=== PATIENT | female | born 1955 | race Caucasian/White ===

== ENCOUNTER → 2017-01-01 | Outpatient (CLI) | payer OTHER ==
[~2017-01-01] MED LIST: ANTIBIOTIC O500 U/GM TP; ASPIR LOW81 MG PO; ATORVASTATIN CA40 M1 PO; BENADRYL50 MG PO; CALAN SR120 MG PO; CARAFATE1 G1 PO; CEFADROXIL500 M1 PO; CHEWABLE VITE1 CTB PO; DEPAKOTE500 M1 PO; DETROL LA4 MG PO; DIOVAN160 M2 PO; EPI EZ PEN1 MG/ML IM; FISH OIL500 M1 PO; GLUCOPHAGE500 M1 PO; HYDR12.5C PO; JANUMET 1000 MG1 TA1 PO; KLOR-CON M2020 ME1 PO; LANTUS100 U/ML SC; LISINOPRIL2.5 MG PO; LORAZEPAM1 MG PO; LOSARTAN POTASS1 TA6 PO; MAGNESIUM OXID400 MG PO; METFORMIN500 MG PO; NAPROSYN500 MG PO; PANTOPRAZOLE SO40 MG PO; PLAVIX75 M1 PO; PLAVIX75 MG PO; PREDNISONE10 MG PO; PROTONIX20 MG PO; TEMAZEPAM15 M1 PO; TENORMIN0.5 MG/ML PO; TENORMIN25 M1 PO; TYLENOL325 M1 PO; VITAMIN E1000 UNI3 PO
== END | disposition home or self-care (01) ==
LOC: MAMMO 00:51
DX: Z12.31 Encounter for screening mammogram for malignant neoplasm of breast (principal)

== ENCOUNTER 2017-11-07 13:42 | Inpatient (IN) | payer OTHER ==
[~2017-11-07] VITALS: Ht 160 cm; Wt 63.7 kg
[2017-11-07] VITALS (7 sets, daily range): BP systolic 132–165; BP diastolic 70–101
--- NOTE | ~2017-11-07 | CON ---
[place], [place] REPORT OF CONSULTATION NAME: JILLIAN VALENZUELA [facility] #: [id number] UNIT #: [id number] ROOM: 502 DOCTOR: SALMA BELLE MD BIRTHDATE: [birth year] DOS: 11/08/2017 CARDIOLOGY CONSULTATION REASON FOR CONSULTATION: Chest discomfort. HISTORY OF PRESENT ILLNESS: The patient was seen today 11/08/2017, for evaluation of chest discomfort. She is a 62-year-old woman, who does have multiple risk factors for coronary artery disease including type 2 diabetes mellitus, hyperlipidemia, hypertension and a previous stroke. She was treated with a right carotid stent at [facility] in the mid . She has no residual. She has never had a heart attack. She was in her normal state of health until about 2 days ago when she began to have heaviness in her chest. She did associate this with some cough and sputum production. She denied that the pain was pleuritic and states that the pain was fairly constant for over 2 days. It did not improve or get worse with exercise, food, position, etc. She did feel very tired with the pain. She did come to the Emergency Room where she was given aspirin. She still does not feel her normal self. Since she has been in the hospital, her electrocardiogram has not shown any acute ST changes and troponin levels have been normal. PAST MEDICAL HISTORY: Includes, 1. History of stroke in the mid . The patient did have a stent to her right carotid at [facility] at that time. 2. Type 2 diabetes mellitus. 3. Essential hypertension. 4. History of pericarditis. 5. History of urinary tract infections. 6. Status post cholecystectomy and hysterectomy. MEDICATIONS: Prior to admission included aspirin 81 mg per day, atorvastatin 40 mg per day, clopidogrel 75 mg per day, divalproex 500 mg per day, lorazepam 1 mg t.i.d. p.r.n., metformin 500 mg b.i.d. before meals, pantoprazole 40 mg daily, sucralfate 1 gram p.o. b.i.d., valsartan 160 mg daily, and verapamil 120 mg daily. ALLERGIES: She lists allergies to PENICILLIN, SULFA, CODEINE, IODINE, LATEX, MOXIFLOXACIN AND NITROGLYCERIN. FAMILY HISTORY: Negative for early coronary artery disease. Her father did have a pacemaker in his 60s or 70s. Her mother was felt to need a pacemaker in her later years, but never had it installed. REVIEW OF SYSTEMS: The patient denies diplopia, loss of vision. She denies lightheadedness or syncope. She denies orthopnea or PND. She has had a very poor appetite the last several days and states that she has lost 10 pounds in the last week or so. She has had some nausea. She denies vomiting. She has had diarrhea, but denies blood in her stools. She was noted to be hypokalemic on admission, she denied any focal weakness. She denied fevers, chills or sweats. She denies hemoptysis or hematemesis. She does not have any blood in [place], [place] REPORT OF CONSULTATION NAME: JILLIAN VALENZUELA UNIT #: [id number] ROOM: [facility] DOCTOR: SALMA BELLE MD BIRTHDATE: [birth year] her urine. She denies any peripheral edema or leg cramping. She denies any history of DVT. She does have degenerative joint disease with pains in her right knee. She denies heat or cold intolerance and denies polyuria or polydipsia. Remainder of the review of systems is negative except as noted above. SOCIAL HISTORY: The patient is a retired nurse's aide from . She was a smoker, but quit many years ago. PHYSICAL EXAMINATION: GENERAL: The patient is a well-nourished woman, who is awake, alert and oriented. VITAL SIGNS: Pulse is 84 and regular, blood pressure is 150/85. She is afebrile. She weighs 63.7 kg and has a body mass index of 24.9. HEENT: Normocephalic, atraumatic. Extraocular muscles are intact. Sclerae are clear. Pupils equal, round and react to light. The oral mucosa is moist. Tongue is midline. NECK: Supple. She has no jugular distention. Carotids are full without bruits. She has no neck or supraclavicular masses, no thyromegaly. LUNGS: Respirations are unlabored. Her chest is clear to auscultation and percussion. She has no presacral edema or chest wall tenderness. CARDIOVASCULAR: Has a regular rhythm. She has a soft S4 gallop, but no S3 or murmur. The PMI is not displaced. There is no precordial heave, lift or thrill. ABDOMEN: Soft and normally active without masses, organomegaly or bruits. EXTREMITIES: Showed no clubbing, cyanosis or edema. There were no palpable cords or Homans sign. Pedal pulses were easily palpated bilaterally. LABORATORY DATA: I reviewed her electrocardiogram. It showed sinus rhythm and was a normal tracing. Hemoglobin is 12.5, hematocrit 38.7. There are 6700 white cells and 279,000 platelets present. Sodium is 135, potassium 3.8, but it was 3.9 on admission. Chloride was 102, CO2 of 23, BUN 4, creatinine 0.73. Troponin levels were negative x 3. Total cholesterol is 118, LDL is 29, HDL is 76, triglycerides 65. TSH was elevated at 9.68. IMPRESSIONS: 1. Atypical chest discomfort. Despite the fact that she has had discomfort for 48 hours, she has no EKG changes or elevation in cardiac troponin. 2. Type 2 diabetes mellitus. 3. Hypertension. 4. Elevated TSH, suggesting hypothyroidism. 5. Remote history of cigarette abuse. 6. Diarrhea with 10-pound weight loss over the last few weeks. PLAN: The patient's symptoms are very suggestive of a GI source. Nonetheless, she does have significant risk factors of hypertension and diabetes. Her lipid levels are ideal. We will evaluate her cardiac status further with a pharmacologic stress test. Further recommendations will depend upon the results [place], [place] REPORT OF CONSULTATION NAME: JILLIAN VALENZUELA UNIT #: [id number] ROOM: [facility] DOCTOR: SALMA BELLE MD BIRTHDATE: [birth year] of the stress test. We thank the hospitalist physicians for asking our advice regarding her care. SALMA BELLE MD CM:CONSTR:REPORT OF CONSULTATION 1028 11/08/17 5229 interface
[2017-11-07 14:00] LABS: BASO % 0.5 % (0.0-1.0); EOS # 0.1 10*3/uL (0.0-0.4); EOS % 0.6 % (1.0-4.0); HEMATOCRIT 40.8 % (37.0-47.0); HEMOGLOBIN 13.1 g/dl (12.0-16.0); LYMPH # 1.8 10*3/uL (1.3-4.4); LYMPH % 22.1 % (27.0-41.0); MEAN CELL VOLUME 76.8 fl (81.0-99.0); MEAN CORPUSCULAR HGB 24.7 pg (27.0-31.0); MEAN CORPUSCULAR HGB CONC 32.1 g/dl (33.0-37.0); MEAN PLATELET VOLUME 9.6 fl (9.6-12.3); MONO # 0.8 10*3/uL (0.1-1.0); MONO % 10.4 % (3.0-9.0); NEUT # 5.3 10*3/uL (2.3-7.9); NEUT % 65.5 % (47.0-73.0); PLATELET COUNT AUTOMATED 269 10*3/uL (130-400); RED BLOOD COUNT 5.31 10*6/uL (4.10-5.10); RED CELL DISTRI WIDTH 14.5 % (0-14.5); WHITE BLOOD COUNT 8.1 10*3/uL (4.8-10.8)
[2017-11-07 14:12] LABS: ACT PARTIAL THROMBO TIME 25.3 SECONDS (20.8-31.5); INTERNATIONAL NORM RATIO 1.1 (2.0-3.5)
[2017-11-07 14:17] LABS: ALBUMIN 3.8 gm/dl (3.1-4.5); ALKALINE PHOSPHATASE 87 U/L (45-117); BUN 3 mg/dl (7-24); CHLORIDE 99 mmol/L (98-107); CREATININE 0.83 mg/dL (0.55-1.02); POTASSIUM 3.9 mmol/L (3.5-5.1); SGOT/AST 71 IU/L (3-35); SGPT/ALT 87 U/L (12-78); SODIUM 135 mmol/L (136-145); TOTAL PROTEIN 8.1 gm/dL (6.4-8.2)
[2017-11-07 14:19] LABS: TROPONIN I < 0.015 ng/ml (<0.045)
[2017-11-08] VITALS (7 sets, daily range): BP systolic 124–166; BP diastolic 68–94
[2017-11-08 06:43] LABS: BASO % 0.6 % (0.0-1.0); EOS # 0.1 10*3/uL (0.0-0.4); HEMATOCRIT 38.7 % (37.0-47.0); HEMOGLOBIN 12.5 g/dl (12.0-16.0); LYMPH # 1.7 10*3/uL (1.3-4.4); LYMPH % 25.3 % (27.0-41.0); MEAN CELL VOLUME 76.2 fl (81.0-99.0); MEAN CORPUSCULAR HGB 24.6 pg (27.0-31.0); MEAN CORPUSCULAR HGB CONC 32.3 g/dl (33.0-37.0); MEAN PLATELET VOLUME 10.4 fl (9.6-12.3); MONO # 0.7 10*3/uL (0.1-1.0); NEUT # 4.1 10*3/uL (2.3-7.9); NEUT % 61.7 % (47.0-73.0); NUCLEATED RED BLOOD CELL 0.3 % (0.0-0.0); PLATELET COUNT AUTOMATED 279 10*3/uL (130-400); RED BLOOD COUNT 5.08 10*6/uL (4.10-5.10); RED CELL DISTRI WIDTH 14.2 % (0-14.5); WHITE BLOOD COUNT 6.7 10*3/uL (4.8-10.8)
[2017-11-08 06:59] LABS: CHLORIDE 102 mmol/L (98-107); POTASSIUM 3.8 mmol/L (3.5-5.1); SODIUM 135 mmol/L (136-145)
[2017-11-08 07:17] LABS: ALBUMIN 3.6 gm/dl (3.1-4.5); ALKALINE PHOSPHATASE 80 U/L (45-117); BUN 4 mg/dl (7-24); CHOLESTEROL 118 mg/dL (<200); CREATININE 0.73 mg/dL (0.55-1.02); FREE T4 0.99 ng/dl (0.76-1.46); HDL CHOLESTEROL 76 mg/dl (40-60); LDL CHOLESTEROL 29 mg/dL (9-159); PHOSPHOROUS 2.9 mg/dL (2.5-4.9); SGOT/AST 60 IU/L (3-35); SGPT/ALT 78 U/L (12-78); TOTAL PROTEIN 7.9 gm/dL (6.4-8.2); TRIGLYCERIDES 65 mg/dl (<150); VLDL CHOLESTEROL 13 mg/dL (6-40)
[2017-11-08 08:00] LABS: VITAMIN D, 25-HYDROXY 20.5 ng/mL (30-100)
[2017-11-09] VITALS (7 sets, daily range): BP systolic 112–182; BP diastolic 69–94
[2017-11-10] VITALS: BP 192/92
[2017-11-10 02:50] VITALS: BP 122/62
[2017-11-10 08:00] VITALS: BP 154/82
[2017-11-10] MEDS ORDERED: HYDR12.5C PO (10:08)
== END 2017-11-10 11:20 | disposition home or self-care (01) | DRG 305 ==
LOC: ED 13:42 → 5E 15:55 → EDHOLD 15:55 → 5E 16:09
PROVIDERS: Emergency Medicine; Internal Medicine
PROC: 4A02XM4 Measurement of Cardiac Total Activity, External Approach (ICD-10-PCS; principal; 2017-11-08)
PROC: 3E073KZ Introduction of Other Diagnostic Substance into Coronary Artery, Percutaneous Approach (ICD-10-PCS; principal; 2017-11-08)
DX: I16.0 Hypertensive urgency (principal); E11.52 Type 2 diabetes mellitus with diabetic peripheral angiopathy with gangrene; E87.1 Hypo-osmolality and hyponatremia; I10 Essential (primary) hypertension; E78.2 Mixed hyperlipidemia; R74.0 Nonspecific elevation of levels of transaminase and lactic acid dehydrogenase [LDH]; I34.0 Nonrheumatic mitral (valve) insufficiency; R19.7 Diarrhea, unspecified; E83.42 Hypomagnesemia; I70.90 Unspecified atherosclerosis; Z87.440 Personal history of urinary (tract) infections; Z90.49 Acquired absence of other specified parts of digestive tract; Z90.710 Acquired absence of both cervix and uterus; Z83.3 Family history of diabetes mellitus; Z82.49 Family history of ischemic heart disease and other diseases of the circulatory system; Z84.89 Family history of other specified conditions; Z82.0 Family history of epilepsy and other diseases of the nervous system; Z88.0 Allergy status to penicillin; Z88.2 Allergy status to sulfonamides; Z88.5 Allergy status to narcotic agent; Z88.8 Allergy status to other drugs, medicaments and biological substances; Z91.040 Latex allergy status; Z86.73 Personal history of transient ischemic attack (TIA), and cerebral infarction without residual deficits; Z79.82 Long term (current) use of aspirin; Z79.84 Long term (current) use of oral hypoglycemic drugs; Z79.899 Other long term (current) drug therapy; Z87.891 Personal history of nicotine dependence

== ENCOUNTER → 2017-11-14 | Outpatient (CLI) | payer OTHER ==
[2017-11-14 13:32] LABS: BUN 5 mg/dl (7-24); CHLORIDE 98 mmol/L (98-107); CREATININE 0.74 mg/dL (0.55-1.02); POTASSIUM 3.9 mmol/L (3.5-5.1); SODIUM 135 mmol/L (136-145)
== END | disposition home or self-care (01) ==
LOC: LAB 11:51
PROVIDERS: Internal Medicine
DX: I10 Essential (primary) hypertension (principal)

== ENCOUNTER 2018-06-13 14:09 | Inpatient (IN) | payer OTHER ==
[~2018-06-13] VITALS: Ht 160 cm; Wt 61.0 kg
--- NOTE | ~2018-06-13 | EKG ---
[place], [place] ELECTROCARDIOGRAM REPORT NAME: JILLIAN VALENZUELA UNIT #: [id number] ROOM: 407 DOCTOR: ROM DRAFT REPORT BIRTHDATE: [birth year] [facility] Test Date: 2018-06-13 Test Time: 18:02:23 Pat Name: JILLIAN VALENZUELA Department: Room: 407 Gender: F Commissions Specialist: Karie Quiros : 1955 Requested By: KOREY VILLEDA Order Number: [id number] Reading MD: Mak Hedrick MD Measurements Intervals [place] Rate: 95 P: 45 NM: 128 QRS: -36 QRSD: 90 T: 14 QT: 392 QTc: 493 Interpretive Statements Sinus rhythm Abnormal R-wave progression, late transition Inferior infarct, old No change from earlier ECG this date Electronically Signed On 06-13-2018 19:49:54 PST by Mak Hedrick MD CM:EKGRPT:ELECTROCARDIOGRAM REPORT 01 48 KOREY CEDILLO DRAFT REPORT KOREY VILLEDA DO
--- NOTE | ~2018-06-13 | EKG ---
[place], [place] ELECTROCARDIOGRAM REPORT NAME: JILLIAN VALENZUELA UNIT #: [id number] ROOM: 407 DOCTOR: ROM DRAFT REPORT BIRTHDATE: [birth year] [facility] Test Date: 2018-06-13 Test Time: 20:50:17 Pat Name: JILLIAN VALENZUELA Department: Room: 407 Gender: F Reservations Sales Supervisor: 50 : 1955 Requested By: KOREY VILLEDA Order Number: [id number] Reading MD: Mak Hedrick MD Measurements Intervals [place] Rate: 78 P: 60 NE: 137 QRS: -39 QRSD: 94 T: 46 QT: 421 QTc: 480 Interpretive Statements Sinus rhythm Probable left atrial enlargement Abnormal R-wave progression, early transition Inferior infarct, old No change from earlier ECG this date Electronically Signed On 06-14-2018 10:31:04 PST by Mak Hedrick MD CM:EKGRPT:ELECTROCARDIOGRAM REPORT [id number] KOREY CEDILLO DRAFT REPORT KOREY VILLEDA DO
--- NOTE | ~2018-06-13 | EKG ---
[place], [place] ELECTROCARDIOGRAM REPORT NAME: JILLIAN VALENZUELA UNIT #: [id number] ROOM: 407 DOCTOR: ROM DRAFT REPORT BIRTHDATE: [birth year] [facility] Test Date: 2018-06-13 Test Time: 14:44:36 Pat Name: JILLIAN VALENZUELA Department: Room: 407 Gender: F Aerophysics Engineer: Karie Quiros : 1955 Requested By: SUSI NAJERA Order Number: [id number] Reading MD: Mak Hedrick MD Measurements Intervals [place] Rate: 108 P: 49 [place]: 132 QRS: -42 QRSD: 84 T: 24 QT: 373 QTc: 500 Interpretive Statements Sinus tachycardia Probable left atrial enlargement Inferior infarct, old Poor precordial R-wave progression No previous ECG available for comparison Electronically Signed On 06-13-2018 19:43:32 PST by Mak Hedrick MD CM:EKGRPT:ELECTROCARDIOGRAM REPORT [id number] 42 SUSI CUETO DRAFT REPORT SUSI PATEL
[2018-06-13 14:12] VITALS: BP 117/73
[2018-06-13 15:11] LABS: BASO % 0.5 % (0.0-1.0); EOS # 0.4 10*3/uL (0.0-0.4); EOS % 5.6 % (1.0-4.0); HEMATOCRIT 36.1 % (37.0-47.0); HEMOGLOBIN 11.6 g/dl (12.0-16.0); LYMPH # 1.7 10*3/uL (1.3-4.4); LYMPH % 27.1 % (27.0-41.0); MEAN CORPUSCULAR HGB 24.7 pg (27.0-31.0); MEAN CORPUSCULAR HGB CONC 32.1 g/dl (33.0-37.0); MEAN PLATELET VOLUME 10.1 fl (9.6-12.3); MONO # 0.4 10*3/uL (0.1-1.0); MONO % 6.9 % (3.0-9.0); NEUT # 3.7 10*3/uL (2.3-7.9); NEUT % 59.6 % (47.0-73.0); PLATELET COUNT AUTOMATED 370 10*3/uL (130-400); RED BLOOD COUNT 4.69 10*6/uL (4.10-5.10); RED CELL DISTRI WIDTH 14.4 % (0-14.5); WHITE BLOOD COUNT 6.2 10*3/uL (4.8-10.8)
[2018-06-13 15:22] LABS: ACT PARTIAL THROMBO TIME 25.3 SECONDS (20.8-31.5); INTERNATIONAL NORM RATIO 1.1 (2.0-3.5)
[2018-06-13 15:28] LABS: ALBUMIN 3.3 gm/dl (3.1-4.5); ALKALINE PHOSPHATASE 66 U/L (45-117); BUN 7 mg/dl (7-24); CHLORIDE 100 mmol/L (98-107); LIPASE 155 U/L (73-393); POTASSIUM 3.1 mmol/L (3.5-5.1); SGOT/AST 35 IU/L (3-35); SGPT/ALT 27 U/L (12-78); SODIUM 135 mmol/L (136-145); TOTAL PROTEIN 7.8 gm/dL (6.4-8.2)
[2018-06-13 16:00] VITALS: BP 132/84
[2018-06-13 17:00] VITALS: BP 128/74
[2018-06-13 17:21] LABS: BILIRUBIN NEGATIVE (NEGATIVE); BLOOD NEGATIVE (NEGATIVE); CLARITY SL CLOUDY (CLEAR); COLOR YELLOW (YELLOW); GLUCOSE NEGATIVE (NEGATIVE); KETONE NEGATIVE (NEGATIVE); LEUKO ESTERASE 1+ (NEGATIVE); NITRITE NEGATIVE (NEGATIVE); PH 7.5 (5.0-9.0); SPECIFIC GRAVITY <= 1.005 (1.005-1.030); UROBILINOGEN 0.2 E.U./dl (0.2-1.0)
[2018-06-13 17:28] LABS: BACTERIA 1+; WBC 41-50 wbc/hpf (0-5)
[2018-06-13 18:40] VITALS: BP 149/72
[2018-06-13] MEDS ORDERED: COZAAR50 M1 PO (18:50)
[2018-06-13] MEDS ORDERED: ZOLOFT50 MG PO (18:52)
[2018-06-13] MEDS ORDERED: TRAZODONE50 MG PO (18:53)
[2018-06-13] MEDS ORDERED: DEXAMETHASONE/NE5 M1 OPH (18:54)
[2018-06-13 20:00] VITALS: BP 139/63
[2018-06-14] VITALS: BP 155/83
[2018-06-14 06:25] LABS: BASO % 0.5 % (0.0-1.0); EOS # 0.5 10*3/uL (0.0-0.4); EOS % 8.2 % (1.0-4.0); HEMATOCRIT 33.2 % (37.0-47.0); HEMOGLOBIN 10.7 g/dl (12.0-16.0); LYMPH # 1.3 10*3/uL (1.3-4.4); LYMPH % 23.3 % (27.0-41.0); MEAN CELL VOLUME 76.9 fl (81.0-99.0); MEAN CORPUSCULAR HGB 24.8 pg (27.0-31.0); MEAN CORPUSCULAR HGB CONC 32.2 g/dl (33.0-37.0); MEAN PLATELET VOLUME 10.4 fl (9.6-12.3); MONO # 0.5 10*3/uL (0.1-1.0); MONO % 8.1 % (3.0-9.0); NEUT # 3.3 10*3/uL (2.3-7.9); NEUT % 59.5 % (47.0-73.0); PLATELET COUNT AUTOMATED 328 10*3/uL (130-400); RED BLOOD COUNT 4.32 10*6/uL (4.10-5.10); RED CELL DISTRI WIDTH 14.1 % (0-14.5); WHITE BLOOD COUNT 5.6 10*3/uL (4.8-10.8)
[2018-06-14 06:35] LABS: ALKALINE PHOSPHATASE 60 U/L (45-117); BUN 4 mg/dl (7-24); CHLORIDE 104 mmol/L (98-107); CHOLESTEROL 103 mg/dL (<200); CREATININE 0.65 mg/dL (0.55-1.02); HDL CHOLESTEROL 37 mg/dl (40-60); IRON 56 ug/dL (50-170); LDL CHOLESTEROL 54 mg/dL (9-159); POTASSIUM 3.6 mmol/L (3.5-5.1); SGOT/AST 32 IU/L (3-35); SGPT/ALT 28 U/L (12-78); SODIUM 136 mmol/L (136-145); TOTAL IRON BINDING CAPACITY 258 ug/dl (250-450); TOTAL PROTEIN 6.7 gm/dL (6.4-8.2); TRIGLYCERIDES 59 mg/dl (<150); VLDL CHOLESTEROL 12 mg/dL (6-40)
[2018-06-14 06:36] LABS: TROPONIN I 0.023 ng/ml (<0.045)
[2018-06-14 06:41] LABS: FREE T4 0.92 ng/dl (0.76-1.46)
[2018-06-14 06:50] LABS: PHOSPHOROUS 0.5 mg/dL (2.5-4.9)
[2018-06-14 07:08] LABS: ACT PARTIAL THROMBO TIME 25.5 SECONDS (20.8-31.5); INTERNATIONAL NORM RATIO 1.1 (2.0-3.5)
[2018-06-14 07:57] LABS: VITAMIN D, 25-HYDROXY 33.8 ng/mL (30-100)
[2018-06-14 08:00] VITALS: BP 148/76
[2018-06-14 12:00] VITALS: BP 131/70
[2018-06-14 16:00] VITALS: BP 136/65
[2018-06-14 20:00] VITALS: BP 147/85
[2018-06-15] VITALS: BP 148/71
[2018-06-15 06:19] LABS: BASO # 0.1 10*3/uL (0.0-0.1); BASO % 0.8 % (0.0-1.0); EOS # 0.5 10*3/uL (0.0-0.4); EOS % 7.9 % (1.0-4.0); HEMOGLOBIN 10.4 g/dl (12.0-16.0); LYMPH # 1.9 10*3/uL (1.3-4.4); LYMPH % 31.3 % (27.0-41.0); MEAN CELL VOLUME 77.6 fl (81.0-99.0); MEAN CORPUSCULAR HGB 24.5 pg (27.0-31.0); MEAN CORPUSCULAR HGB CONC 31.5 g/dl (33.0-37.0); MEAN PLATELET VOLUME 10.8 fl (9.6-12.3); MONO # 0.6 10*3/uL (0.1-1.0); MONO % 10.4 % (3.0-9.0); NEUT % 49.3 % (47.0-73.0); PLATELET COUNT AUTOMATED 304 10*3/uL (130-400); RED BLOOD COUNT 4.25 10*6/uL (4.10-5.10); RED CELL DISTRI WIDTH 14.4 % (0-14.5)
[2018-06-15 06:54] LABS: ALBUMIN 2.9 gm/dl (3.1-4.5); ALKALINE PHOSPHATASE 64 U/L (45-117); BUN 2 mg/dl (7-24); CHLORIDE 108 mmol/L (98-107); CREATININE 0.62 mg/dL (0.55-1.02); PHOSPHOROUS 2.4 mg/dL (2.5-4.9); POTASSIUM 3.5 mmol/L (3.5-5.1); SGOT/AST 35 IU/L (3-35); SGPT/ALT 29 U/L (12-78); SODIUM 139 mmol/L (136-145); TOTAL PROTEIN 6.6 gm/dL (6.4-8.2)
[2018-06-15 08:00] VITALS: BP 146/72
[2018-06-15 12:00] VITALS: BP 130/59
[2018-06-15 16:00] VITALS: BP 150/71
[2018-06-15 20:00] VITALS: BP 144/76
[2018-06-16] VITALS: BP 157/77
[2018-06-16 06:26] LABS: BUN 1 mg/dl (7-24); CHLORIDE 110 mmol/L (98-107); CREATININE 0.67 mg/dL (0.55-1.02); PHOSPHOROUS 2.1 mg/dL (2.5-4.9); POTASSIUM 3.4 mmol/L (3.5-5.1); SODIUM 140 mmol/L (136-145)
[2018-06-16 06:43] LABS: BASO % 0.4 % (0.0-1.0); EOS # 0.4 10*3/uL (0.0-0.4); HEMATOCRIT 33.2 % (37.0-47.0); HEMOGLOBIN 10.6 g/dl (12.0-16.0); LYMPH # 1.2 10*3/uL (1.3-4.4); LYMPH % 21.9 % (27.0-41.0); MEAN CELL VOLUME 77.9 fl (81.0-99.0); MEAN CORPUSCULAR HGB 24.9 pg (27.0-31.0); MEAN CORPUSCULAR HGB CONC 31.9 g/dl (33.0-37.0); MEAN PLATELET VOLUME 10.7 fl (9.6-12.3); MONO # 0.5 10*3/uL (0.1-1.0); NEUT # 3.4 10*3/uL (2.3-7.9); NEUT % 61.3 % (47.0-73.0); PLATELET COUNT AUTOMATED 312 10*3/uL (130-400); RED BLOOD COUNT 4.26 10*6/uL (4.10-5.10); RED CELL DISTRI WIDTH 14.5 % (0-14.5); WHITE BLOOD COUNT 5.6 10*3/uL (4.8-10.8)
[2018-06-16 08:00] VITALS: BP 146/82
[2018-06-16 12:00] VITALS: BP 164/82
[2018-06-16 16:00] VITALS: BP 156/87
[2018-06-16 20:00] VITALS: BP 154/88; BP 168/90
[2018-06-17] VITALS: BP 154/70
[2018-06-17 08:00] VITALS: BP 150/80
[2018-06-17 12:00] VITALS: BP 125/62
[2018-06-17] MEDS ORDERED: DEPAKOTE250 MG PO (13:29)
[2018-06-17 16:00] VITALS: BP 154/69
[2018-06-17 20:00] VITALS: BP 176/90; BP 179/86
[2018-06-18] VITALS: BP 169/90; BP 182/98
[2018-06-18 02:15] VITALS: BP 132/66
[2018-06-18 04:00] VITALS: BP 138/72
[2018-06-18 08:00] VITALS: BP 168/98
[2018-06-18 09:48] VITALS: BP 122/68
[2018-06-18 12:00] VITALS: BP 125/71
== END 2018-06-18 14:13 | disposition home health service (06) | DRG 683 ==
LOC: ED 14:09 → 4E 17:50 → EDHOLD 17:50 → 4E 18:12
PROVIDERS: Internal Medicine; Physician Assistant; Student in an Organized Health Care Education/Training Program; ADMIT Emergency Medicine
DX: N17.9 Acute kidney failure, unspecified (principal); N30.00 Acute cystitis without hematuria; E87.1 Hypo-osmolality and hyponatremia; E87.2 Acidosis; R63.0 Anorexia; E86.0 Dehydration; D50.9 Iron deficiency anemia, unspecified; E87.6 Hypokalemia; E11.65 Type 2 diabetes mellitus with hyperglycemia; E83.42 Hypomagnesemia; E78.2 Mixed hyperlipidemia; I70.90 Unspecified atherosclerosis; J44.9 Chronic obstructive pulmonary disease, unspecified; K21.9 Gastro-esophageal reflux disease without esophagitis; F41.9 Anxiety disorder, unspecified; E83.39 Other disorders of phosphorus metabolism; I67.1 Cerebral aneurysm, nonruptured; I10 Essential (primary) hypertension; E53.8 Deficiency of other specified B group vitamins; Z88.0 Allergy status to penicillin; Z88.2 Allergy status to sulfonamides; Z88.1 Allergy status to other antibiotic agents; Z88.8 Allergy status to other drugs, medicaments and biological substances; Z91.040 Latex allergy status; Z90.710 Acquired absence of both cervix and uterus; Z90.49 Acquired absence of other specified parts of digestive tract; Z87.891 Personal history of nicotine dependence; Z82.0 Family history of epilepsy and other diseases of the nervous system; Z83.3 Family history of diabetes mellitus; Z82.49 Family history of ischemic heart disease and other diseases of the circulatory system; Z83.438 Family history of other disorder of lipoprotein metabolism and other lipidemia; Z86.73 Personal history of transient ischemic attack (TIA), and cerebral infarction without residual deficits; Z86.718 Personal history of other venous thrombosis and embolism; Z79.82 Long term (current) use of aspirin; Z79.899 Other long term (current) drug therapy; Z79.02 Long term (current) use of antithrombotics/antiplatelets; Z68.23 Body mass index [BMI] 23.0-23.9, adult

== ENCOUNTER → 2018-10-30 | Outpatient (CLI) | payer OTHER ==
[~2018-10-30] MED LIST changes: +COZAAR50 M1 PO; +DEPAKOTE250 MG PO; +DEXAMETHASONE/NE5 M1 OPH; +MYNEPHROCAPS SOF1 MG PO; +POTASSIUM CHLO10 MEQ PO; +TOPROL XL25 MG PO; +TRAZODONE50 MG PO; +VIIBRYD1 EAC1 PO; +ZOLOFT50 MG PO
--- NOTE | ~2018-10-30 | EKG ---
[place], [place] ELECTROCARDIOGRAM REPORT NAME: JILLIAN VALENZUELA UNIT #: [id number] ROOM: DOCTOR: ROM DRAFT REPORT BIRTHDATE: [birth year] [facility] Test Date: 2018-10-30 Test Time: 14:24:58 Pat Name: JILLIAN VALENZUELA Department: Room: Gender: F Director Nursing Service: : 1955 Requested By: MANDY ROY Order Number: [id number] Reading MD: Milad Guzman Measurements Intervals [place] Rate: 82 P: 61 PA: 145 QRS: -32 QRSD: 86 T: 1 QT: 373 QTc: 436 Interpretive Statements Sinus rhythm Probable left atrial enlargement Inferior infarct, old Anteroseptal infarct, old Compared to ECG 06/13/2018 20:50:17 No significant changes Electronically Signed On 10-31-2018 8:34:04 PDT by Milad Guzman CM:EKGRPT:ELECTROCARDIOGRAM REPORT [id number] MANDY CEDILLO DRAFT REPORT MANDY ROY DO
[2018-10-30 14:13] LABS: BASO % 0.5 % (0.0-1.0); EOS # 0.1 10*3/uL (0.0-0.4); EOS % 1.7 % (1.0-4.0); HEMOGLOBIN 11.7 g/dl (12.0-16.0); LYMPH # 2.1 10*3/uL (1.3-4.4); LYMPH % 27.5 % (27.0-41.0); MEAN CELL VOLUME 77.2 fl (81.0-99.0); MEAN CORPUSCULAR HGB 23.8 pg (27.0-31.0); MEAN CORPUSCULAR HGB CONC 30.8 g/dl (33.0-37.0); MEAN PLATELET VOLUME 10.6 fl (9.6-12.3); MONO # 0.8 10*3/uL (0.1-1.0); MONO % 11.2 % (3.0-9.0); NEUT # 4.4 10*3/uL (2.3-7.9); NEUT % 58.6 % (47.0-73.0); PLATELET COUNT AUTOMATED 261 10*3/uL (130-400); RED BLOOD COUNT 4.92 10*6/uL (4.10-5.10); RED CELL DISTRI WIDTH 15.3 % (0-14.5); WHITE BLOOD COUNT 7.5 10*3/uL (4.8-10.8)
[2018-10-30 14:24] LABS: ACT PARTIAL THROMBO TIME 26.3 SECONDS (20.0-32.1); INTERNATIONAL NORM RATIO 1.1 (2.0-3.5)
[2018-10-30 14:42] LABS: ALBUMIN 3.8 gm/dl (3.1-4.5); ALKALINE PHOSPHATASE 120 U/L (45-117); BUN 8 mg/dl (7-24); CHLORIDE 102 mmol/L (98-107); CREATININE 0.84 mg/dL (0.55-1.02); POTASSIUM 4.6 mmol/L (3.5-5.1); SGOT/AST 16 IU/L (3-35); SGPT/ALT 28 U/L (12-78); SODIUM 133 mmol/L (136-145); TOTAL PROTEIN 7.6 gm/dL (6.4-8.2)
== END | disposition home or self-care (01) ==
LOC: LAB 13:42
PROVIDERS: Orthopaedic Surgery
DX: E11.9 Type 2 diabetes mellitus without complications (principal); I10 Essential (primary) hypertension; M19.90 Unspecified osteoarthritis, unspecified site; N39.0 Urinary tract infection, site not specified; D68.8 Other specified coagulation defects; J98.11 Atelectasis

== ENCOUNTER → 2018-11-03 | Outpatient (CLI) | payer OTHER ==
[2018-11-03 12:08] LABS: ALBUMIN 3.6 gm/dl (3.1-4.5); ALKALINE PHOSPHATASE 121 U/L (45-117); BUN 8 mg/dl (7-24); CHLORIDE 98 mmol/L (98-107); CREATININE 0.82 mg/dL (0.55-1.02); POTASSIUM 4.1 mmol/L (3.5-5.1); SGOT/AST 16 IU/L (3-35); SGPT/ALT 34 U/L (12-78); SODIUM 133 mmol/L (136-145); TOTAL PROTEIN 7.7 gm/dL (6.4-8.2)
== END | disposition home or self-care (01) ==
LOC: LAB 11:15
PROVIDERS: Orthopaedic Surgery
DX: R79.9 Abnormal finding of blood chemistry, unspecified (principal)

== ENCOUNTER → 2018-11-10 | Outpatient (CLI) | payer OTHER ==
[2018-11-10 13:56] LABS: ALBUMIN 3.6 gm/dl (3.1-4.5); ALKALINE PHOSPHATASE 103 U/L (45-117); BUN 9 mg/dl (7-24); CHLORIDE 105 mmol/L (98-107); CREATININE 0.95 mg/dL (0.55-1.02); POTASSIUM 3.8 mmol/L (3.5-5.1); SGOT/AST 17 IU/L (3-35); SGPT/ALT 28 U/L (12-78); SODIUM 140 mmol/L (136-145); TOTAL PROTEIN 7.8 gm/dL (6.4-8.2)
== END | disposition home or self-care (01) ==
LOC: LAB 12:55
PROVIDERS: Orthopaedic Surgery
DX: R79.9 Abnormal finding of blood chemistry, unspecified (principal)

== ENCOUNTER → 2018-11-17 | Outpatient (CLI) | payer OTHER ==
[2018-11-17 16:34] LABS: ALKALINE PHOSPHATASE 103 U/L (45-117); BUN 11 mg/dl (7-24); CHLORIDE 104 mmol/L (98-107); CREATININE 0.89 mg/dL (0.55-1.02); POTASSIUM 4.4 mmol/L (3.5-5.1); SGOT/AST 17 IU/L (3-35); SGPT/ALT 30 U/L (12-78); SODIUM 138 mmol/L (136-145); TOTAL PROTEIN 8.1 gm/dL (6.4-8.2)
[2018-11-17 18:18] LABS: BILIRUBIN NEGATIVE (NEGATIVE); BLOOD NEGATIVE (NEGATIVE); CLARITY CLEAR (CLEAR); COLOR YELLOW (YELLOW); GLUCOSE NEGATIVE (NEGATIVE); KETONE NEGATIVE (NEGATIVE); LEUKO ESTERASE 2+ (NEGATIVE); NITRITE NEGATIVE (NEGATIVE); PH 7.5 (5.0-9.0); UROBILINOGEN 0.2 E.U./dl (0.2-1.0)
[2018-11-17 18:23] LABS: BACTERIA TRACE; WBC 21-30 wbc/hpf (0-5)
== END | disposition home or self-care (01) ==
LOC: LAB 15:33
PROVIDERS: Orthopaedic Surgery
DX: N39.0 Urinary tract infection, site not specified (principal)

== ENCOUNTER 2018-12-23 04:54 | Inpatient (IN) | payer OTHER ==
[2018-12-23] VITALS (7 sets, daily range): BP systolic 138–172; BP diastolic 73–96
[~2018-12-23] VITALS: Ht 160 cm; Wt 58.1 kg
--- NOTE | ~2018-12-23 | EKG ---
[place], [place] ELECTROCARDIOGRAM REPORT NAME: JILLIAN VALENZUELA UNIT #: [id number] ROOM: 506 DOCTOR: ROM DRAFT REPORT BIRTHDATE: [birth year] [facility] Test Date: 2018-12-23 Test Time: 07:07:47 Pat Name: JILLIAN VALENZUELA Department: Room: 506 Gender: F Cinder Snapper: Karie Quiros : 1955 Requested By: RAEGAN LACY Order Number: [id number] Reading MD: Amor Mariscal MD Measurements Intervals [place] Rate: 89 P: 62 [place]: 150 QRS: -47 QRSD: 97 T: 58 QT: 389 QTc: 474 Interpretive Statements Sinus rhythm Left axis deviation Electronically Signed On 12-23-2018 12:57:15 PDT by Amor Mariscal MD CM:EKGRPT:ELECTROCARDIOGRAM REPORT [id number] RAEGAN CEDILLO DRAFT REPORT RAEGAN LACY DO
[~2018-12-23 04:54] MED LIST changes: -MYNEPHROCAPS SOF1 MG PO; -POTASSIUM CHLO10 MEQ PO; -TOPROL XL25 MG PO; -VIIBRYD1 EAC1 PO
[2018-12-23 06:11] LABS: BASO % 0.4 % (0.0-1.0); EOS # 0.1 10*3/uL (0.0-0.4); EOS % 1.9 % (1.0-4.0); HEMATOCRIT 31.8 % (37.0-47.0); HEMOGLOBIN 9.9 g/dl (12.0-16.0); LYMPH # 1.5 10*3/uL (1.3-4.4); LYMPH % 19.4 % (27.0-41.0); MEAN CELL VOLUME 74.8 fl (81.0-99.0); MEAN CORPUSCULAR HGB 23.3 pg (27.0-31.0); MEAN CORPUSCULAR HGB CONC 31.1 g/dl (33.0-37.0); MEAN PLATELET VOLUME 10.5 fl (9.6-12.3); MONO # 0.9 10*3/uL (0.1-1.0); MONO % 12.1 % (3.0-9.0); NEUT # 4.9 10*3/uL (2.3-7.9); NEUT % 65.8 % (47.0-73.0); PLATELET COUNT AUTOMATED 387 10*3/uL (130-400); RED BLOOD COUNT 4.25 10*6/uL (4.10-5.10); RED CELL DISTRI WIDTH 14.7 % (0-14.5); WHITE BLOOD COUNT 7.5 10*3/uL (4.8-10.8)
[2018-12-23 06:22] LABS: BUN 5 mg/dl (7-24); CHLORIDE 93 mmol/L (98-107); CREATININE 0.69 mg/dL (0.55-1.02); SODIUM 126 mmol/L (136-145)
--- NOTE | 2018-12-23 07:05 | NUR ---
PT REFUSES TO DRESS IN GOWN, PREFERS TO WEAR OWN PAJAMAS. DENIES WOUNDS, PT DEFERS EXAM.
[2018-12-23 07:21] LABS: BILIRUBIN NEGATIVE (NEGATIVE); BLOOD NEGATIVE (NEGATIVE); CLARITY CLEAR (CLEAR); COLOR YELLOW (YELLOW); GLUCOSE NEGATIVE (NEGATIVE); KETONE NEGATIVE (NEGATIVE); LEUKO ESTERASE 1+ (NEGATIVE); NITRITE NEGATIVE (NEGATIVE); PH 7.5 (5.0-9.0); UROBILINOGEN 0.2 E.U./dl (0.2-1.0)
--- NOTE | 2018-12-23 07:30 | NUR ---
A 63, admitted to 5E, under the services of MARCOS Raman DO with a diagnosis of Ambulatory dysfunction hyponatremia. Chief complaint is multiple complaints. Patient arrived via stretcher from ER. Monitor applied. Initial assessment completed. Vital signs taken and recorded. MARCOS RAMAN DO notified of admission to the unit. Orders received. See assessment for past medical history, medications and allergies. Patient and/or family oriented to unit. [address] visitation policy reviewed. Clothing/patient valuable form completed. CHELSIE BELTRAN
[2018-12-23] MEDS ORDERED: POTASSIUM CHLO10 MEQ PO (08:13)
[2018-12-23] MEDS ORDERED: TOPROL XL25 MG PO (08:14)
[2018-12-23] MEDS ORDERED: MYNEPHROCAPS SOF1 MG PO (08:15)
[2018-12-23] MEDS ORDERED: VIIBRYD1 EAC1 PO (08:23)
--- NOTE | 2018-12-23 08:30 | NUR ---
Dr. Carson notified of patients updated med rec. No new orders at this time.
--- NOTE | 2018-12-23 11:43 | NUR ---
Occupational Therapy evaluation completed this date on 5 with full eval to follow. Precautions include slow rate of performance, anxiety,RA changes to both hands including significant ulnar drift, IV UE, low complexity via chart review, testing and evaluation. Recommend no further OT at this time as patient is independent in self care and mobility. Thank you. Marlys Gonzalez OTr/L
--- NOTE | 2018-12-23 11:43 | NUR ---
PHYSICAL THERAPY Physical therapy evaluation complete, 5E. Full evaluation/details to follow. Low complexity evaluation (55069) per chart review and evaluation. PT to progress per POC to address LE strength, gait, transfers, and balance. Recommend return home with Home Health PT services at discharge. Thank you. Staci Curry,PT,DPT.
--- NOTE | 2018-12-23 14:20 | NUR ---
Tylenol given per patient request for c/o headache. Will monitor.
--- NOTE | 2018-12-23 16:03 | NUR ---
Notified Dr. Jenkins regarding patient stating Tylenol was not effective for headache and home meds have not been ordered. Physician to review.
--- NOTE | 2018-12-23 22:41 | NUR ---
Tylenol given per patient request for c/o right knee pain.
[2018-12-24] VITALS: BP 145/75
--- NOTE | 2018-12-24 00:34 | NUR ---
PATIENT REQUESTED AN ATIVAN TO HELP HER SLEEP. WAS GIVEN. WILL MONITOR AND REASSESS.
--- NOTE | 2018-12-24 00:34 | NUR ---
PATIENT STATED SHE WAS HAVING INCREASED ANXIETY, ATIVAN GIVEN. WILL MONITOR AND REASSESS.
--- NOTE | 2018-12-24 02:00 | NUR ---
PATIENT RESTING, NO SIGNS OF DISTRESS. ATIVAN EFFECTIVE.
[2018-12-24 06:14] LABS: BASO % 0.2 % (0.0-1.0); EOS % 0.1 % (1.0-4.0); HEMATOCRIT 29.9 % (37.0-47.0); HEMOGLOBIN 9.3 g/dl (12.0-16.0); LYMPH # 2.2 10*3/uL (1.3-4.4); LYMPH % 23.5 % (27.0-41.0); MEAN CORPUSCULAR HGB CONC 31.1 g/dl (33.0-37.0); MEAN PLATELET VOLUME 10.5 fl (9.6-12.3); MONO # 0.9 10*3/uL (0.1-1.0); MONO % 9.4 % (3.0-9.0); NEUT # 6.2 10*3/uL (2.3-7.9); NEUT % 66.3 % (47.0-73.0); PLATELET COUNT AUTOMATED 383 10*3/uL (130-400); RED BLOOD COUNT 4.04 10*6/uL (4.10-5.10); RED CELL DISTRI WIDTH 14.6 % (0-14.5); WHITE BLOOD COUNT 9.4 10*3/uL (4.8-10.8)
[2018-12-24 06:40] LABS: BUN 8 mg/dl (7-24); CHLORIDE 103 mmol/L (98-107); CREATININE 0.66 mg/dL (0.55-1.02); POTASSIUM 3.8 mmol/L (3.5-5.1); SODIUM 134 mmol/L (136-145)
--- NOTE | 2018-12-24 08:15 | NUR ---
PHYSICAL THERAPY Patient seen this am 1;1 for therapy visit and was sitting up on EOB upon therapist arrival. Patient voices mild R knee pain, 3/10 this morning, but otherwise was very pleasant. Patient transfers sit to stand SBA and ambulates without AD, 100' x 2, SBA, demonstrating slow, steady gait pattern. Patient became a little fatigued upon completion of second gait trial and returned to EOB sit. Patient remained EOB sit with call light, tray table and telephone. Will continue per POC as tolerated, total treatment time 16 minutes. Alexander Kim, ADJUNCT MATHEMATICS INSTRUCTOR
--- NOTE | 2018-12-24 08:59 | NUR ---
Medicated with tylenol per prn order for complaints of headache.
--- NOTE | 2018-12-24 09:45 | NUR ---
States that medication somewhat effective for headache.
[2018-12-24] MEDS ORDERED: LORAZEPAM1 MG PO (10:41)
--- NOTE | 2018-12-24 11:18 | NUR ---
Discharge instructions reviewed with patient. Patient receptive and verbalizes understanding. Follow-up care arranged. Written instructions given to pt. Awaiting her ride to pick her up. CONSTANTINE ROSENBERG
--- NOTE | 2018-12-24 11:32 | NUR ---
Handle Lathe Operator in to talk to patient. Patient states lives at HOME with ALONE. There are NO steps in the home. Physician: Payton VILLEGAS Pharmacy: [facility] services: [facility] Patient's level of ADLs: INDEPENDENT Patient has working utilities: YES DME: [facility] Follow-up physician's appointment after d/c: WILL BE MADE BY HOSPITALIST NURSE DIRECTOR ON DISCHARGE Does patient want to access PORTAL?: NO Discharge plan PT LIVES AT HOME ALONE, STATES HER SON HELPS HER OUT WHEN SHE NEEDS IT. DENIES ANY NEEDS ON DISCHARGE. PT IS CURRENTLY HAVING OV FOR RECENT KNEE REPLACEMENT AND WANT TO RESUME THAT. WILL CONTINUE TO FOLLOW. STATES HE SON WILL TRANSPORT HER HOME. . BOBO DAVIS
--- NOTE | 2018-12-24 13:43 | NUR ---
PT discharged in care of son.
--- NOTE | 2018-12-24 16:30 | NUR ---
PHYSICAL THERAPY CO-SIGN I approve of the Physical Therapy notes written above. MARISA SAMUELS PT,DPT
== END 2018-12-24 13:43 | disposition home health service (06) | DRG 641 ==
LOC: ED 04:54 → 5E 06:50 → EDHOLD 06:50 → 5E 07:17
PROVIDERS: Internal Medicine; Student in an Organized Health Care Education/Training Program; ADMIT Internal Medicine
DX: E87.1 Hypo-osmolality and hyponatremia (principal); R26.2 Difficulty in walking, not elsewhere classified; E87.6 Hypokalemia; M25.569 Pain in unspecified knee; E53.8 Deficiency of other specified B group vitamins; I10 Essential (primary) hypertension; F41.9 Anxiety disorder, unspecified; E11.9 Type 2 diabetes mellitus without complications; E87.8 Other disorders of electrolyte and fluid balance, not elsewhere classified; R00.0 Tachycardia, unspecified; I70.90 Unspecified atherosclerosis; E11.69 Type 2 diabetes mellitus with other specified complication; D50.9 Iron deficiency anemia, unspecified; K21.9 Gastro-esophageal reflux disease without esophagitis; Z96.651 Presence of right artificial knee joint; E78.2 Mixed hyperlipidemia; Z90.710 Acquired absence of both cervix and uterus; Z90.49 Acquired absence of other specified parts of digestive tract; Z87.891 Personal history of nicotine dependence; Z82.49 Family history of ischemic heart disease and other diseases of the circulatory system; Z83.3 Family history of diabetes mellitus; Z82.0 Family history of epilepsy and other diseases of the nervous system; Z84.89 Family history of other specified conditions; Z88.0 Allergy status to penicillin; Z86.73 Personal history of transient ischemic attack (TIA), and cerebral infarction without residual deficits; Z88.2 Allergy status to sulfonamides; Z88.6 Allergy status to analgesic agent; Z88.8 Allergy status to other drugs, medicaments and biological substances; Z91.041 Radiographic dye allergy status; Z91.040 Latex allergy status; Z79.899 Other long term (current) drug therapy; Z79.84 Long term (current) use of oral hypoglycemic drugs; Z86.718 Personal history of other venous thrombosis and embolism

== ENCOUNTER 2019-02-02 14:40 | Emergency (ER) | payer OTHER ==
[~2019-02-02] VITALS: Ht 160 cm; Wt 54.4 kg
[~2019-02-02 14:40] MED LIST changes: +MYNEPHROCAPS SOF1 MG PO; +POTASSIUM CHLO10 MEQ PO; +TOPROL XL25 MG PO; +VIIBRYD1 EAC1 PO
[2019-02-02 16:13] LABS: ACT PARTIAL THROMBO TIME 29.1 SECONDS (20.0-32.1); INTERNATIONAL NORM RATIO 1.1 (2.0-3.5)
[2019-02-02 16:54] LABS: BASO % 0.4 % (0.0-1.0); EOS # 0.2 10*3/uL (0.0-0.4); EOS % 2.3 % (1.0-4.0); HEMATOCRIT 38.3 % (37.0-47.0); HEMOGLOBIN 12.5 g/dl (12.0-16.0); LYMPH # 1.9 10*3/uL (1.3-4.4); LYMPH % 26.8 % (27.0-41.0); MEAN CELL VOLUME 73.4 fl (81.0-99.0); MEAN CORPUSCULAR HGB 23.9 pg (27.0-31.0); MEAN CORPUSCULAR HGB CONC 32.6 g/dl (33.0-37.0); MONO # 0.7 10*3/uL (0.1-1.0); MONO % 9.6 % (3.0-9.0); NEUT # 4.2 10*3/uL (2.3-7.9); NEUT % 60.6 % (47.0-73.0); PLATELET COUNT AUTOMATED 246 10*3/uL (130-400); RED BLOOD COUNT 5.22 10*6/uL (4.10-5.10); RED CELL DISTRI WIDTH 16.1 % (0-14.5)
[2019-02-02 17:11] LABS: ALBUMIN 3.8 gm/dl (3.1-4.5); ALKALINE PHOSPHATASE 93 U/L (45-117); BUN 5 mg/dl (7-24); CHLORIDE 92 mmol/L (98-107); CREATININE 0.65 mg/dL (0.55-1.02); POTASSIUM 3.7 mmol/L (3.5-5.1); SGOT/AST 25 IU/L (3-35); SGPT/ALT 32 U/L (12-78); SODIUM 126 mmol/L (136-145); TOTAL PROTEIN 7.8 gm/dL (6.4-8.2)
[2019-02-02 18:30] VITALS: BP 144/88
== END 2019-02-02 19:41 | disposition short-term general hospital (02) ==
LOC: ED 14:40
PROVIDERS: Nurse Practitioner
DX: R51 Headache (principal); E87.1 Hypo-osmolality and hyponatremia; I67.1 Cerebral aneurysm, nonruptured; G62.9 Polyneuropathy, unspecified; Z87.891 Personal history of nicotine dependence; Z98.890 Other specified postprocedural states; Z90.49 Acquired absence of other specified parts of digestive tract; Z90.710 Acquired absence of both cervix and uterus; Z79.899 Other long term (current) drug therapy; Z88.0 Allergy status to penicillin; Z88.2 Allergy status to sulfonamides; Z91.040 Latex allergy status; Z88.8 Allergy status to other drugs, medicaments and biological substances; Z86.73 Personal history of transient ischemic attack (TIA), and cerebral infarction without residual deficits

== ENCOUNTER 2019-05-20 13:53 | Emergency (ER) | payer OTHER ==
[~2019-05-20] VITALS: Ht 162.5 cm; Wt 61.2 kg
[2019-05-20 14:11] VITALS: BP 107/69
== END 2019-05-20 15:07 | disposition home or self-care (01) ==
LOC: ED 13:53
DX: R04.0 Epistaxis (principal); K21.9 Gastro-esophageal reflux disease without esophagitis; E11.9 Type 2 diabetes mellitus without complications; I10 Essential (primary) hypertension; Z79.899 Other long term (current) drug therapy; Z88.0 Allergy status to penicillin; Z88.2 Allergy status to sulfonamides; Z91.040 Latex allergy status; Z88.8 Allergy status to other drugs, medicaments and biological substances; Z88.1 Allergy status to other antibiotic agents; Z87.891 Personal history of nicotine dependence; Z86.718 Personal history of other venous thrombosis and embolism; Z86.73 Personal history of transient ischemic attack (TIA), and cerebral infarction without residual deficits

== ENCOUNTER 2019-06-02 22:52 | Emergency (ER) | payer OTHER ==
[~2019-06-02] VITALS: Ht 160 cm; Wt 68.0 kg
[2019-06-03 00:06] LABS: BASO # 0.1 10*3/uL (0.0-0.1); BASO % 0.8 % (0.0-1.0); EOS # 0.1 10*3/uL (0.0-0.4); EOS % 1.7 % (1.0-4.0); HEMATOCRIT 36.7 % (37.0-47.0); HEMOGLOBIN 12.2 g/dl (12.0-16.0); LYMPH # 2.4 10*3/uL (1.3-4.4); LYMPH % 37.4 % (27.0-41.0); MEAN CELL VOLUME 76.6 fl (81.0-99.0); MEAN CORPUSCULAR HGB 25.5 pg (27.0-31.0); MEAN CORPUSCULAR HGB CONC 33.2 g/dl (33.0-37.0); MONO # 0.9 10*3/uL (0.1-1.0); NEUT % 45.6 % (47.0-73.0); PLATELET COUNT AUTOMATED 375 10*3/uL (130-400); RED BLOOD COUNT 4.79 10*6/uL (4.10-5.10); RED CELL DISTRI WIDTH 13.7 % (0-14.5); WHITE BLOOD COUNT 6.5 10*3/uL (4.8-10.8)
[2019-06-03 00:48] LABS: INTERNATIONAL NORM RATIO 1.2 (2.0-3.5)
[2019-06-03 00:54] LABS: ALBUMIN 3.7 gm/dl (3.1-4.5); ALKALINE PHOSPHATASE 87 U/L (45-117); BUN 6 mg/dl (7-24); CHLORIDE 91 mmol/L (98-107); CREATININE 0.64 mg/dL (0.55-1.02); POTASSIUM 3.6 mmol/L (3.5-5.1); SGOT/AST 50 IU/L (3-35); SGPT/ALT 56 U/L (12-78); SODIUM 122 mmol/L (136-145); TOTAL PROTEIN 7.8 gm/dL (6.4-8.2)
[2019-06-03 01:35] VITALS: BP 140/98
== END 2019-06-03 03:00 | disposition short-term general hospital (02) ==
LOC: ED 22:52
PROVIDERS: Emergency Medicine
DX: I67.1 Cerebral aneurysm, nonruptured (principal); R51 Headache; M79.602 Pain in left arm; R25.1 Tremor, unspecified; K21.9 Gastro-esophageal reflux disease without esophagitis; I10 Essential (primary) hypertension; E11.9 Type 2 diabetes mellitus without complications; Z86.73 Personal history of transient ischemic attack (TIA), and cerebral infarction without residual deficits; Z88.0 Allergy status to penicillin; Z88.2 Allergy status to sulfonamides; Z88.5 Allergy status to narcotic agent; Z91.041 Radiographic dye allergy status; Z91.040 Latex allergy status; Z88.1 Allergy status to other antibiotic agents; Z88.8 Allergy status to other drugs, medicaments and biological substances; Z79.899 Other long term (current) drug therapy; Z90.49 Acquired absence of other specified parts of digestive tract; Z90.710 Acquired absence of both cervix and uterus; Z87.891 Personal history of nicotine dependence; Z86.718 Personal history of other venous thrombosis and embolism